=== PATIENT | female | born 1990 | race African-American/Black ===

== ENCOUNTER 2020-06-28 09:17 | Emergency (ER) | payer MEDICAID, OTHER ==
[~2020-06-28] VITALS: Ht 172.7 cm; Wt 66.0 kg
[2020-06-28 09:20] VITALS: BP 118/80
== END 2020-06-28 10:24 | disposition left against medical advice (07) ==
LOC: ER 09:17
DX: M54.2 Cervicalgia (principal); Z53.21 Procedure and treatment not carried out due to patient leaving prior to being seen by health care provider

== ENCOUNTER 2025-03-24 15:59 | Emergency (ER) | payer MEDICAID, OTHER ==
[~2025-03-24] VITALS: Ht 160 cm; Wt 64.0 kg
[2025-03-24 16:00] VITALS: BP 128/83; TEMP 36.7; O2SAT 98
[2025-03-24 16:05] VITALS: PULSE 98; RESP 16; O2SAT 76
== END 2025-03-24 17:30 | disposition left against medical advice (07) ==
LOC: ER 15:59
DX: R51.9 Headache, unspecified (principal); R10.9 Unspecified abdominal pain; Z98.890 Other specified postprocedural states; Z53.21 Procedure and treatment not carried out due to patient leaving prior to being seen by health care provider; V49.9XXA Car occupant (driver) (passenger) injured in unspecified traffic accident, initial encounter; Y93.89 Activity, other specified; Y92.89 Other specified places as the place of occurrence of the external cause; Y99.8 Other external cause status